=== PATIENT | female | born 1990 | race Caucasian/White ===

== ENCOUNTER 2023-04-04 07:05 | Inpatient (IN) | payer MEDICAID, SELFPAY ==
[2023-04-04] VITALS (54 sets, daily range): BP systolic 79–108; BP diastolic 45–62; PULSE 70–156; TEMP 35.9–36.7; O2SAT 83–100; BMI 31.8
--- NOTE | 2023-04-04 08:00 | HP.PCM.OB_ITS ---
HPI - General General Date of Admission: 04/04/23 HPI Narrative RUSSELL CAMPBELL, is a 32 F who presents [facility] Home Medications NK 04/04/23 [History Last Taken Unknown] Allergy/AdvReac Type Severity Reaction Status Date / Time Penicillins [PCN] Allergy Rash Verified 04/04/23 07:33 Vital Signs Vital Signs Vital Signs: 04/04/23 07:28 04/04/23 07:28 04/04/23 07:28 Temperature 97.5 F L Pulse Rate 91 Blood Pressure 93/54 L BP Systolic 93 BP Diastolic 54 Pulse Ox 04/04/23 07:29 04/04/23 07:29 Temperature Pulse Rate 89 Blood Pressure BP Systolic BP Diastolic Pulse Ox 99 Weight Weight: 203 lb 0.732 oz Body Mass Index (BMI) 31.8 Labs Labs Labs: No Data to Display
--- NOTE | 2023-04-04 08:00 | PCM.HP.OB ---
HPI - General General Date of Admission: 04/04/23 HPI Narrative RUSSELL CAMPBELL, is a 32 F at 37.2 weeks gestation who presents for induction of labor for cholestasis. Maternal Data Information XIN Calculator Estimated Delivery Date Method Current WG Current Estimate 04/23/23 Manual 37w 2d PFSH PFSH Home Medications NK 04/04/23 [History Last Taken Unknown] Allergy/AdvReac Type Severity Reaction Status Date / Time Penicillins [PCN] Allergy Rash Verified 04/04/23 07:33 Social History Smoking Status: Never smoker History Elective abortions Hx Para 5 Spontaneous abortions Hx # Term Pregnancies Ectopic pregnancies Hx # Pregnancies Multiple births # of living children ROS Eyes Eyes: Denies blurry vision, change in vision or spots in vision ENT HEENT: Denies dizziness or headache(s) Cardiovascular Cardiovascular: Denies abdominal pain, chest pain or dyspnea Respiratory/Chest Respiratory/Chest: Denies cough, dyspnea, shortness of breath at rest or shortness of breath with exertion Gastrointestinal Gastrointestinal: Denies abdominal pain, diarrhea or vomiting Genitourinary Genitourinary: Denies change in urinary stream, difficulty urinating or dysuria Musculoskeletal Musculoskeletal: Reports none Integumentary Integumentary: Denies rash Neurologic Neurologic: Denies dizziness, headache(s), memory loss or weakness Psychiatric Psychiatric: Reports none Vital Signs Vital Signs Vital Signs: 04/04/23 07:28 04/04/23 07:28 04/04/23 07:28 Temperature 97.5 F L Pulse Rate 91 Blood Pressure 93/54 L BP Systolic 93 BP Diastolic 54 Pulse Ox 04/04/23 07:29 04/04/23 07:29 Temperature Pulse Rate 89 Blood Pressure BP Systolic BP Diastolic Pulse Ox 99 Weight Weight: 203 lb 0.732 oz Body Mass Index (BMI) 31.8 Physical Exam Const alert, oriented x3 and no apparent distress General Appearance: cooperative Orientation / Consciousness: awake Exam Limitations: no limitations HEENT normocephalic Head and Scalp: normal to inspection Eyes General Eye: normal appearance of both eyes Neck full ROM and no lymphadenopathy Lymph Lymphatic: no lymphadenopathy noted Chest inspection of chest normal Resp normal respiratory effort, normal air movement and clear to auscultation bilaterally Effort and Inspection: able to speak in complete sentences and symmetric chest movement Cardio regular rate and regular rhythm GI normal to inspection, nondistended, normoactive bowel sounds Manual OB Exam: presentation cephalic Back/Spine normal ROM Extremity full ROM and no calf tenderness Skin no rashes or lesions noted General Skin Exam: no breakdown Neuro oriented x3 and CN's II-XII intact bilaterally Psych mental status grossly normal and thought process normal Labs Labs Labs: Blood Type Pending Antibody Screen Pending Hct 31.9 % (37-47) L Hgb 10.3 g/dL (12.0-15.0) L Syphilis Total Ab Pending Assessment & Plan (1) Grand multiparity in labor and delivery: (2) 37 weeks gestation of : (3) Cholestasis during : PLAN: Plan Admit to labor and delivery Routine labs Start IV and run fluids per orders GBS negative Start Pitocin at 2 mu/min and increase per policy Patient declining placement of ga bulb until s/p epidural placement CE- 2//-[address] Curiel notified of admission and is collaborating physician
[2023-04-04] MEDS: Lactated Ringers 1,000 ML 50 ML IV (08:11)
[2023-04-04] MEDS: Oxytocin 15 Units/NS 250ml 15 UNITS/250 ML IV.SOLN 2 UNITS IV (08:11)
[2023-04-04 08:28] LABS: Absolute Lymphocyte Count 1.64 X10^3/uL (0.83-4.51); Absolute Neutrophil Count 4.4 X10^3/uL (2.0-7.7); Basophil# 0.02 X10^3/uL; Basophil% 0.3 % (0-1); Eosinophil# 0.17 X10^3/uL; Eosinophils% 2.4 % (0-5); Hematocrit 31.9 % (37-47); Hemoglobin 10.3 g/dL (12.0-15.0); Lymphocyte # 1.64 X10^3/ul (0.83-4.51); Lymphocyte % 23.6 % (19-41); Mean Corp Hgb Conc 32.3 g/dL (32-36); Mean Corpuscular Hgb 27.2 pg (27.0-32.0); Mean Corpuscular Volume 84.4 fL (81-99); Mean Platelet Vol. 11.6 fl (6.2-12.0); Monocyte# 0.68 X10^3/uL; Monocyte% 9.8 % (0-10); NRBC Flagged by Analyzer 0 % (0-5); Neutrophil % 63.2 % (47-70); Platelet Count 213 K/mm3 (150-450); RBC Distribution Width CV 12.9 % (11.6-14.6); RBC Distribution Width SD 39.2 fl (35.1-43.9); Red Blood Count 3.78 M/mm3 (4.2-5.4)
[2023-04-04 09:01] LABS: Syphilis Antibodies Non-reactive
[2023-04-04] MEDS: LACTATED RINGERS 500 ML 999 ML IV ×3 (12:43→16:19)
[2023-04-04 13:54] LABS: Chlamydia Trachomatis by PCR Negative (Negative); Neisserai gonorrhoeae by PCR Negative (Negative); Probe Check PASS; Sample Adequacy Control PASS; Specimen Processing Control PASS
[2023-04-04] MEDS: fentaNYL-bupivacaine (epidural) 100 ML BAG EPIDURAL ×2 (14:09→20:03)
--- NOTE | 2023-04-04 17:24 | PCM.PN.BLA ---
Progress Note Patient seen at bedside. Comfortable with epidural. Denies any pain. Assessment & Plan Assessment/Plan (1) Grand multiparity in labor and delivery: (2) 37 weeks gestation of : (3) Cholestasis during : (4) Encounter for induction of labor: PLAN: Plan CE /-2 AROM for clear fluid IUPC placed without difficulty Pitocin at 20 mu/min Cat. 1 tracing, NST reactive Anticipate
[2023-04-04] MEDS: Lactated Ringers 1,000 ML 200 ML IV ×2 (17:39→23:14)
[2023-04-05] VITALS (41 sets, daily range): BP systolic 92–142; BP diastolic 51–97; PULSE 59–86; RESP 15–16; TEMP 36.1–37; O2SAT 89–100
[2023-04-05] MEDS: Oxytocin 15 Units/NS 250ml 15 UNITS/250 ML IV.SOLN 83 UNITS IV (02:00)
--- NOTE | 2023-04-05 02:06 | EX.PCM.OBRPT ---
Assessment & Plan (1) (spontaneous vaginal delivery): (2) Care and examination of lactating mother: (3) Anxiety: (4) depression: (5) Cholestasis during : Maternal Data Information XIN Calculator Estimated Delivery Date Method Current WG Current Estimate 04/23/23 Manual 37w 3d Vaginal Delivery Maternal Presentation Maternal Presentation: Medically Indicated Induction Type of Induction: Pitocin and Amniotomy Operative Information Date of Procedure: 04/05/23 Pre-Operative Diagnosis: Term gestation, induction of labor for cholestasis Post-Operative Diagnosis: , Live male Surgery / Procedure Performed: Spontaneous Vaginal Delivery Type of Anesthesia: Epidural Drain: Tolentino to straight drain Estimated Blood Loss: 150 Time of Delivery: 01:41 Findings Description of Procedure: Called to patient's room for being complete dilation and feeling pressure. With minimal maternal effort, head delivered with noted hand next to face, followed immediately by anterior shoulder and remainder of infant body without traction. Vigorous male placed on maternal abdomen and attended to by nursing staff. Pitocin IV started for active management of the third stage of labor. 3 vessel cord clamped and cut by FOB after delay and placed skin to skin with patient. Placenta delivered spontaenously and intact. After inspection the vagina and perineum intact. Fundus firm 2 below U. EBL 150 cc. APGARS 9/9. Patient and bonding well at this time. Presentation: Vertex Amniotic Membrane Rupture Type: Artificial Time of Membrane Rupture: 1717 Amniotic Fluid Description: Clear and Bloody Placental Delivery Description: Spontaneous Placenta Disposition: [facility] Cord Vessel Description: 3 Vessels Cord Entanglement: None A Gender: Male (1 minute): 9 (5 minute): 9 Delayed Cord Clamping: Yes Post Vaginal Delivery Medications Given After Delivery: IV Pitocin Episiotomy Description: None Laceration: None Complication Complications: None
--- NOTE | 2023-04-05 09:20 | NURSING ---
pt in room lying flat in bed. pt c/o chest tightness. denies SOB and is able to take deep breaths. VS WNL. will call office and make them aware of pt complaints.
--- NOTE | 2023-04-05 11:47 | NURSING ---
pt states that chest tightness has gone away. pt requesting for this nurse to do VS now so she can take a nap.
[2023-04-05] MEDS: Acetaminophen 500 MG Tablet 1000 MG PO (15:06)
[2023-04-05] MEDS: Senna/Docusate Sodium 1 Tablet PO (15:07)
[2023-04-06 00:36] VITALS: BP 101/48; PULSE 69; RESP 14; TEMP 37; O2SAT 98
[2023-04-06 02:46] VITALS: BP 112/67; PULSE 68; RESP 17; TEMP 36.6; O2SAT 99
[2023-04-06] MEDS: Senna/Docusate Sodium 1 Tablet PO (02:48)
[2023-04-06] MEDS: Acetaminophen 500 MG Tablet 1000 MG PO ×2 (02:48→09:20)
[2023-04-06] MEDS: Naproxen 500 MG Tablet PO (05:51)
--- NOTE | 2023-04-06 08:09 | PCM.PN.OB ---
Subjective Subjective Doing well per patient and nursing staff. Ambulating and taking PO without difficulty. Voiding and passing flatus. Pain controlled. , services for assistance. Denies headache, visual changes, chest pain, shortness of breath, leg pain or increased bleeding. Lochia normal. Objective Data Objective Data Vital Signs: Vital Signs Temp Pulse Resp BP Pulse Ox O2 Del Method 97.8 F 68 17 112/67 99 Room Air 04/06/23 02:46 04/06/23 02:46 04/06/23 02:46 04/06/23 02:46 04/06/23 02:46 04/06/23 02:46 Oxygen Delivery Method Room Air Weight: 203 lb 0.732 oz Body Mass Index (BMI) 31.8 Intake & Output: Intake and Output for Last 24 Hours 04/04/23 04/05/23 04/06/23 23:59 23:59 23:59 Intake Total 4054.66 / 4054.66 839.07 / 839.07 Output Total 2350 / 2350 550 / 550 Balance 1704.66 / 1704.66 289.07 / 289.07 Lab / Micro Data Result Diagrams: 04/04/23 07:55 ROS Constitutional Constitutional: Reports systems reviewed and no addt'l complaints, except as documented; Denies headache(s) Eyes Eyes: Denies acute decrease in peripheral vision, blurry vision or change in vision ENT HEENT: Reports systems reviewed and no addt'l complaints, except as documented Cardiovascular Cardiovascular: Denies chest pain or dizziness Respiratory/Chest Respiratory/Chest: Denies cough, dyspnea, dyspnea on exertion, shortness of breath at rest or shortness of breath with exertion Gastrointestinal Gastrointestinal: Denies abdominal pain, diarrhea, nausea or vomiting Genitourinary Genitourinary: Denies abdominal discomfort Musculoskeletal Musculoskeletal: Denies limited range of motion Integumentary Integumentary: Reports systems reviewed and no addt'l complaints, except as documented Neurologic Neurologic: Reports systems reviewed and no addt'l complaints, except as documented Psychiatric Psychiatric: Reports systems reviewed and no addt'l complaints, except as documented Endocrine Endocrinology: Reports systems reviewed and no addt'l complaints, except as documented Hematologic/Lymphatic Hematologic/Lymphatic: Reports systems reviewed and no addt'l complaints, except as documented Allergic/Immunologic Allergic/Immunologic: Reports systems reviewed and no addt'l complaints, except as documented Physical Exam Const alert and oriented x3 General Appearance: cooperative Orientation / Consciousness: awake, oriented to person, oriented to place and oriented to time Exam Limitations: no limitations HEENT normocephalic Head and Scalp: normal to inspection, normocephalic and atraumatic Face and Sinus: normal facial exam Eyes General Eye: normal appearance of both eyes Neck full ROM Chest Chest: symmetrical chest wall rise Resp normal respiratory effort and normal air movement Auscultation: clear to auscultation bilaterally Cardio regular rate, regular rhythm, S1 normal heart sound, S2 normal heart sound, no murmurs, no rub, no gallops and no clicks GI normal to inspection, nondistended, normoactive bowel sounds and non-tender appearance of the vagina normal Bladder / Kidney Exam: no CVA tenderness Back/Spine normal ROM Extremity normal to inspection and full ROM Skin no rashes or lesions noted Neuro oriented x3, CN's II-XII intact bilaterally and moves all extremities Sensorium / Orientation: awake, alert and oriented to person Motor Exam: clonus absent Deep Tendon Reflexes: Rt Patellar (L4): 2+ and Lt Patellar (L4): 2+ Assessment & Plan (1) depression: (2) Anxiety: (3) Care and examination of lactating mother: (4) (spontaneous vaginal delivery): PLAN: Plan 1) PPD#1 2) Vitals stable 3) Pain controlled 4) Follow up in 2 weeks and 6 weeks PP 5) D/C home
--- NOTE | 2023-04-06 08:10 | PCM.DC.SUM ---
Providers Date of Admission: 04/04/23 Primary Care Physician: Christina Primary Care Phys Reason For Visit: VAGINAL DELIVERY Diagnosis Discharge Diagnosis (1) depression: Status: Acute Code(s): F53.0 - depression (2) Anxiety: Status: Acute Code(s): F41.9 - Anxiety disorder, unspecified (3) Care and examination of lactating mother: Status: Acute Code(s): Z39.1 - Encounter for care and examination of lactating mother (4) (spontaneous vaginal delivery): Status: Acute Code(s): O80 - Encounter for full-term uncomplicated delivery Plan 1) PPD#1 2) Vitals stable 3) Pain controlled 4) Follow up in 2 weeks and 6 weeks PP 5) D/C home Medications at Discharge Home Medications acetaminophen 500 mg tablet 1,000 mg PO Q6H PRN PRN Pain 1-10 Or Fever #0 tabs 04/06/23 naproxen 500 mg tablet 500 mg PO Q8H PRN PRN Pain Score 1-3 #0 tabs 04/06/23 Weight / BMI Weight Weight: 203 lb 0.732 oz Body Mass Index (BMI) 31.8 ABG / Lab / Microbiology Data Result Diagrams: 04/04/23 07:55 Meaningful Use Info Meaningful Use Diagnoses (Choose all that apply): None applicable Discharge Plan Admission Admit Date/Time: 04/04/23 07:05 Primary Reason for Your Visit: Vaginal Delivery Attending Provider: Jennifer Wright Primary Care Provider: Viky Physician,Christina Primary Discharge Orders/Prescriptions Prescriptions: New acetaminophen 500 mg Tablet 1,000 mg PO Q6H PRN PRN (Reason: Pain 1-10 Or Fever) Qty: 0 0RF naproxen 500 mg Tablet 500 mg PO Q8H PRN PRN (Reason: Pain Score 1-3) Qty: 0 0RF Referrals / Follow Up: Care Physician,No Primary [Primary Care Provider] - Disposition Disposition (needs filled in before D/C Order can be placed): Home, Self Care
--- NOTE | 2023-04-07 16:00 | CASEMGMT ---
Social Work Assessment Labor and Delivery Unit ? REFERRAL ? Date of Referral:?04.05.2023 Time of Referral:?718 Date of Intervention:?04.07.2023 Time of Intervention:?[id number] ? Referral source: Jennifer Wright CNM ?? Reason for Referral:?Maternal anxiety, depression, history of PPD, SCN admission.?? ? HISTORY: History obtained from:??Mother of baby (MOB), medical records. ?Educated that this flex o writer operator is the social research assistant for [facility], and for continuity of care of families admitted to the special care nursery, also provide social work services to special care. ? Family Data Patient/mother of Baby (MOB):??Falguni Kim, age 30 ? Father of Baby (FOB):??Codie Reese Julio, 1992 ? Parents' relationship status:?? ? Household composition:??MOB, FOB, and 's 5 older siblings: ? Jessica Swenson, 4..2007 Hudson Swenson, 12..2010 Shen Diego, 12..2015 Aleyda Diego, 9..2012 Rolly Julio, 12.20.2021 Infant/patient, Roberto Sanchezbarbara, 04.05.2021 ? Name of Child's Legal Guardian:?MOB and FOB Will reside with child??yes ? Names of Significant Others/Childcare/Caregivers not living in the home:?MOB and FOB are primary caregivers.?? ? Other support systems:??MOB's grandmother and the family's sikh.?? ? Housing:??Reported as safe and adequate. ?Live in home. ? Care:?[facility]ia [facility], starting at 13 weeks.? Medical History: ? Baby:??Infant delivered at 37.2 weeks gestation. ?3450 g at . ?Apgars 9 and 9 at 1 and 5 minutes of life respectively. ? transferred into the special care nursery after due to respiratory distress issues. Mother:??MOB is 7, para 5 now 6 after delivering infant Roberto. ?Medical record indicates MOB was induced for cholestasis. ? ? Health Care Coverage:?[place] community health plan ? Financial Status/Employment:?MELCHOR was working a cleaning business, but plans to take a step back from this and be a [id number] mother. ?MOB reports the FOVaibhav recently got up stipend through the [employer] which is allowing the MOB opportunity to stay home. ?STANISLAV also works outside of the home. ? Educational Status: ?MOB:??MOB has some college. ?No reported literacy issues. ???FOB: ?FOVaibhav's educational status not discussed. ? Baby Supplies:??MOB reports to have all necessary supplies to care for the infant including safe sleep space of pack and play with bassinet attachment. ?Car seat in place. ?No concerns with clothing, diapers or wipes. ? Transportation Needs:??MOB denies any concerns. ? Community Agencies Involved:??[employer] for food card and medical. ?Active with WIC. ?Verbally agrees to a nurse visit through the [facility]. ? Mental Health History:?MOB reports history of depression, anxiety, ADHD and depression. ?MOB reports history of counseling and that this has been helpful. ?Denies any history of suicidal ideations. ?Family history of MELCHOR's grandmother with depression.?? Post Depression/Mental Health Resources Provided??Resources provided. Mother expresses understanding of post depression education??Yes. ? History of Violence:?MOB denies any history of violence or safety concerns in current relationship. ? Substance Use History:?MOB denies any substance use history including alcohol or illicit drugs. ? care record indicates MELCHOR's mother with a history of alcohol use issues. Toxicology Screens Conducted During :??No toxicology screens noted during . Toxicology Screens Conducted at Delivery:??No drug screens noted at delivery. ? Legal/CSB History:?No reported legal concerns or children services history. ? Other Potential Program Eligibility:?WIC:?Active ?SSI:?not identified ?CMH:??not identified.?HMG/EI:?Will have a nurse visit referral through the [facility].?Financial Resources:??Active with [employer] for food and medical.?? ? Family Stressors:?Infant in SCN.?? ? Impression: Met with MOB in room, introducing to self and social work role. ?MOB pleasant, cooperative, and open discussion with social research assistant. ?MOB admits it has been difficult having the in the special care nursery but had a [id number] with the electric motor winders assembler today and this was helpful. ?MOB reports willingness to stay in the hospital and work with the recommendation of the electric motor winders assembler. ?MOB denies any concerns with home-going, reporting to have all necessary supplies to care for the infant and did not have support from the FOB and left group at sikh. ?MOB's grandmother is also and an identified support. ?MOB is aware of depression as has experienced this in the past, reports willingness to seek out care and support should symptoms arise and/or become distressing. ?MOB willing to accept a referral to a nurse visit program in her area as well as information on depression. ?MOB denies any concerns with home-going. ? Plan: MOB has been discharged as a patient. Information provided on mood and anxiety disorders. Referral to the [facility] nurse visit program being completed. SW to follow as needed during special care nursery admission to provide support, education and resources. No other services requested or indicated at this time. KATHIA King 04/07/2023
== END 2023-04-06 09:30 | disposition home or self-care (01) | DRG 560 ==
PROVIDERS: Advanced Practice Midwife; Admitting Provider Advanced Practice Midwife; Visit Provider Advanced Practice Midwife
DX: O99.344 Other mental disorders complicating childbirth (principal); Z37.0 Single live birth; F41.9 Anxiety disorder, unspecified; Z3A.37 37 weeks gestation of pregnancy
CPT/HCPCS: 59025; 59050; 85025; 86780; 86850; 86900; 86901; 87491; 87591; 99221; J7120; G0378

== ENCOUNTER 2024-10-03 15:38 | Emergency (ER) | payer MEDICAID, SELFPAY ==
[2024-10-03 15:39] VITALS: BP 93/80; PULSE 91; RESP 18; TEMP 36.4; O2SAT 15; BMI 33.8
[2024-10-03 17:15] LABS: Absolute Lymphocyte Count 1.96 X10^3/uL (0.83-4.51); Absolute Neutrophil Count 4.1 X10^3/uL (2.0-7.7); Basophil# 0.03 X10^3/uL; Basophil% 0.4 % (0-1); Eosinophil# 0.17 X10^3/uL; Eosinophils% 2.5 % (0-5); Hematocrit 36.9 % (37-47); Hemoglobin 12.4 g/dL (12.0-15.0); Lymphocyte # 1.96 X10^3/ul (0.83-4.51); Lymphocyte % 29.2 % (19-41); Mean Corp Hgb Conc 33.6 g/dL (32-36); Mean Corpuscular Hgb 29.3 pg (27.0-32.0); Mean Corpuscular Volume 87.2 fL (81-99); Mean Platelet Vol. 10.8 fl (6.2-12.0); Monocyte# 0.42 X10^3/uL; Monocyte% 6.3 % (0-10); NRBC Flagged by Analyzer 0 % (0-5); Neutrophil % 61.2 % (47-70); Platelet Count 239 K/mm3 (150-450); RBC Distribution Width CV 13.2 % (11.6-14.6); RBC Distribution Width SD 41.4 fl (35.1-43.9); Red Blood Count 4.23 M/mm3 (4.2-5.4); White Blood Count 6.7 K/mm3 (4.4-11.0)
--- NOTE | 2024-10-03 17:21 | US_ITS ---
EXAM: US ABDOMEN LIMITED, RIGHT UPPER QUADRANT CLINICAL INDICATION: abdominal pain TECHNIQUE: Real-time ultrasound of the right upper quadrant with image documentation. COMPARISON: No relevant prior studies available. FINDINGS: LIVER: Unremarkable. 17.1 cm in length. Patent visualized hepatic and portal veins. Normal direction of portal vein flow. There is normal echotexture. No focal hepatic lesion. No intrahepatic biliary ductal dilation. GALLBLADDER: Unremarkable. No shadowing gallstone. No gallbladder wall thickening is demonstrated. No pericholecystic fluid. Negative sonographic Lares''s sign. COMMON BILE DUCT: Unremarkable as visualized 3 mm near the curtis.. The proximal common bile duct is within normal limits for the patient''s age. PANCREAS: Much of the pancreas is obscured by bowel gas. No focal abnormality is demonstrated in the pancreas. No pancreatic ductal dilatation. RIGHT KIDNEY: Unremarkable. 11.7 cm x 4.9 cm x 3.7 cm There is no hydronephrosis. No shadowing calculus. No focal lesion or perinephric collection is demonstrated. US/Gallbladder IMPRESSION: Unremarkable right upper quadrant ultrasound. Limited visualization of pancreas. Electronically Signed: Merlene Dillon MD at 18:42 EST ,
--- NOTE | 2024-10-03 17:21 | EX.ED.DYSGE1 ---
HPI History of Present Illness Chief Complaint: Abd Pain Detail of Chief Complaint: Abdominal pain Informant: patient Narrative Narrative: Patient presents to the emergency room with complaint of abdominal pain that started around 10 AM this morning. Patient states the pain lasted about 2 hours continuously and it was crampy and squeezing-like. She had not eaten yet today. She had similar pain with the current x 3. Last time she had this pain was the day before . Patient states that she had similar pain with her prior . She has history of cholestasis. No prior abdominal surgeries. She is 19 weeks . Patient is G8, P6. She denies vaginal bleeding. She is feeling the baby move. She denies urinary symptoms. [facility] Medical History (Updated 10/03/24 @ 19:[address] Chon Payne DO) HPV (human papilloma virus) infection macrosomia Psychiatric disorder depression Depression Anxiety Home Medications ?Medication ?Instructions ?Recorded ?Last Taken ?Type acetaminophen 500 mg tablet 1,000 mg (2 x 500 mg) PO Q6H PRN 04/06/23 Unknown Rx PRN Pain 1-10 Or Fever #0 tabs naproxen 500 mg tablet 500 mg PO Q8H PRN PRN Pain Score 04/06/23 Unknown Rx 1-3 #0 tabs Allergy/AdvReac Type Severity Reaction Status Date / Time Penicillins (PCN) Allergy Rash Verified 10/03/24 15:39 Social History Smoking Status: Never smoker ROS ROS ED Review of Systems ROS Unobtainable: other Constitutional Constitutional ED: Reports lethargy; Denies chills, fever(s), sweats or weight loss Eyes Eyes: Denies blurry vision, change in vision or diplopia ENT ENT ED: Denies rhinorrhea or sore throat Cardiovascular Cardiovascular: Denies chest pain, orthopnea or racing heartbeat Respiratory/Chest Respiratory/Chest: Denies cough, dyspnea, dyspnea on exertion, orthopnea or sputum Gastrointestinal Gastrointestinal: Reports abdominal pain; Denies diarrhea, nausea or vomiting Genitourinary Genitourinary ED: Denies dysuria, hematuria or urinary frequency Musculoskeletal Musculoskeletal: Denies arthralgias, back pain, myalgias or neck pain Integumentary Denies abscess, Abrasions or rash Neurologic Neurologic: Denies headache(s) or weakness Psychiatric Psychiatric: Denies anxiety, depression or suicidal thoughts Endocrine Endocrinology: Denies polydipsia, polyphagia or polyuria Hematologic/Lymphatic Hematologic/Lymphatic: Denies easy bleeding, easy bruising or lymphadenopathy Allergic/Immunologic Allergic/Immunologic ED: Denies mouth swelling, tongue swelling or urticaria EXAM Physical Exam Const Vital Signs: 10/03/24 15:39 Temperature 97.5 F L Temperature Source Temporal Pulse Rate 91 Respiratory Rate 18 Blood Pressure 93/80 Blood Pressure Mean 84 Pulse Ox 15 Oxygen Delivery Method Room Air Positive well nourished and well developed General Appearance ED: well developed and NAD HEENT Reports TM's clear and moist mucous membranes normocephalic and atraumatic; Negative for trauma or tenderness Tympanic Membrane ED: Yes TM's clear Eyes PERRL and EOMs intact bilaterally General Eye ED: Negative for pale conjunctiva or scleral icterus Neck no lymphadenopathy, supple and no JVD General: Negative for tenderness Chest Wall inspection of chest normal and palpation of chest normal Chest: Negative for tenderness Resp normal respiratory effort and clear to auscultation bilaterally Effort and Inspection: Negative for respiratory distress or pain with movement Auscultation: Negative for rhonchi, wheezes or diminished lung sounds Cardio regular rate, regular rhythm, S1 normal heart sound, S2 normal heart sound and no murmurs Peripheral Pulses: pulses 2+ throughout GI normal to inspection, nondistended, normoactive bowel sounds, soft to palpation, non-tender, non-distended and no masses Back/Spine no CVA tenderness and no thoracic nor lumbar tenderness Extremity normal to inspection General Extremety ED: Negative for edema General Extremity: Negative for edema Neuro oriented x3, CN's II-XII intact bilaterally, no sensory deficits noted and gait normal Sensorium / Orientation: awake, alert, oriented to person, oriented to place and oriented to time Motor Exam: strength 5/5 throughout and strength abnormal Psych mental status grossly normal Skin no rashes or lesions noted and no wounds MDM MDM MDM Narrative Medical decision making narrative: The patient presents to the emergency department with abdominal pain that she had for about 2 hours earlier today in the right upper quadrant. She has history of cholestasis related to . She is currently pain-free. She has had similar pains in the past with prior pregnancies. IV line established. CBC with differential obtained showed a normal white count of 6.7 with hemoglobin of 12.4 and platelet count of 239. Chemistries and LFTs were normal. Urinalysis was normal. Gallbladder ultrasound performed was essentially normal. Plan will be to obtain heart tones and discharged to home. Clinically she looks well. I do not feel any further treatments indicated. Advised to follow-up with her SCIENTIFIC SYSTEMS ANALYST within next 3 to 5 days. She is to return if worsening pain, fever, vomiting, or condition should worsen in any way. Lab Data Attestation: I reviewed the patient's lab results. Labs: Laboratory Results - last 24 hr 10/03/24 17:05 WBC 6.7 RBC 4.23 Hgb 12.4 Hct 36.9 L MCV 87.2 MCH 29.3 MCHC 33.6 RDW Std Deviation 41.4 RDW Coeff of Jaya 13.2 Plt Count 239 MPV 10.8 Immature Gran % (Auto) 0.400 Neut % (Auto) 61.2 Lymph % (Auto) 29.2 [place] % (Auto) 6.3 Eos % (Auto) 2.5 Baso % (Auto) 0.4 Absolute Neuts (auto) 4.1 Absolute Lymphs (auto) 1.96 Nucleated RBC % 0 Discharge Plan Triage Chief Complaint: Abd Pain ED Provider: Chon Payne Dx/Rx/DC Orders Clinical Impression: Abdominal pain, Instructions: ED Abdominal Pain Unkn Cause Fem, ED Prescriptions: No Action acetaminophen 500 mg Tablet 1,000 mg PO Q6H PRN PRN (Reason: Pain 1-10 Or Fever) Qty: 0 0RF naproxen 500 mg Tablet 500 mg PO Q8H PRN PRN (Reason: Pain Score 1-3) Qty: 0 0RF Primary Care Provider: Sandrita Mo Referrals: Care Physician,No Primary [Non-Staff] - Activity Restrictions/Additional Instructions: Follow-up with your SCIENTIFIC SYSTEMS ANALYST within the next 3 to 5 days. Print Language: Wolof Disposition Disposition: Home, Self Care
[2024-10-03 17:34] LABS: Internal QC Validated? YES +Cl - CLEAR BKGD
[2024-10-03 17:35] LABS: ALB/GLOB Ratio 0.8 RATIO (0.9-2.4); AST(SGOT) 11 U/L (15-37); Alanine Aminotransfer ALT/SGPT 17 U/L (13-56); Albumin, Serum 3.2 g/dL (3.2-5.0); Alkaline Phosphatase 81 U/L (45-117); Anion Gap 6 (5-15); BUN 8 mg/dL (7-18); BUN/Creat Ratio 15.2 RATIO (10-20); Chloride 108 mmol/L (98-107); Creatinine, Serum 0.53 mg/dL (0.55-1.02); EST Glomerular Filtration Rate 142 mL/min (>60); Est Glom Filt Rate - Afr Amer 172 mL/min (>60); Estimated Creatinine Clearance 183.19 ml/min; Globulin 4.1 g/dL (2.2-4.2); Glucose 94 mg/dL (74-106); Potassium 3.7 mmol/L (3.5-5.1); Protein, Total 7.3 g/dL (6.4-8.2); Sodium Level 139 mmol/L (136-145)
[2024-10-03 17:37] LABS: Pregnancy, Serum, hCG Quali. POSITIVE Negative
[2024-10-03 17:38] VITALS: BP 103/78
[2024-10-03 18:50] LABS: Mucous, Urine 0 SEEN /hpf (<or=2+); Red Blood Cells-Urine 0 SEEN /hpf (0-5)
[2024-10-03 18:55] LABS: Color, Urine Yellow (Yellow); Glucose, Dipstick Normal (Normal); Ketone-Dipstick Negative (Negative); Leukocyte Esterase-Dipstick 25 /ul (Negative); Nitrite-Dipstick Negative (Negative); Occult Blood-Urine Negative /ul (Negative); Protein-Dipstick 15 mg/dl (Negative); Specific Gravity, Urine 1.025 (1.002-1.030); Urine Bilirubin Dipstick Negative (Negative); Urine Clarity Clear (Clear); Urine Urobilinogen 1 mg/dl (Normal)
[2024-10-03 19:01] LABS: Bacteria 1+ /hpf (None Seen); Squamous Epithelial Cells - UA 5-10 SEEN /hpf (5-10); White Blood Cells 0-5 SEEN /hpf (0-5)
== END 2024-10-03 19:19 | disposition home or self-care (01) ==
PROVIDERS: Emergency Provider Emergency Medicine; Visit Provider Emergency Medicine
DX: O99.891 Other specified diseases and conditions complicating pregnancy (principal); Z3A.19 19 weeks gestation of pregnancy; R10.11 Right upper quadrant pain
CPT/HCPCS: 76705; 80053; 81001; 84703; 85025; 99283; A4216

== ENCOUNTER 2025-02-07 07:55 | Outpatient (CLI) | payer MEDICAID, SELFPAY ==
[2025-02-07 07:51] VITALS: BMI 32.8
[2025-02-07 08:06] VITALS: BP 106/55; PULSE 81
[2025-02-07 08:07] VITALS: RESP 15; TEMP 36.6; O2SAT 99
--- NOTE | 2025-02-14 13:28 | OB.TRI.HP_ITS ---
HPI - General General Date of Service: 02/14/25 HPI Narrative RUSSELL CAMPBELL, is a 34 F who presents fo induction. PFSH PFSH Medical History Cholestasis during Thyroid disorder HPV (human papilloma virus) infection macrosomia Psychiatric disorder depression Depression Anxiety Home Medications ?Medication ?Instructions ?Recorded ?Last Taken ?Type acetaminophen 500 mg tablet 1,000 mg (2 x 500 mg) PO Q 6H PRN 04/06/23 Unknown Rx PRN Pain 1-10 Or Fever #0 tabs Allergy/AdvReac Type Severity Reaction Status Date / Time Penicillins (PCN) Allergy Rash Verified 02/08/25 08:14 Social History Smoking Status: Never smoker History 8 Elective abortions Hx Para 6 Spontaneous abortions Hx # Term Pregnancies Ectopic pregnancies Hx # Pregnancies Multiple births # of living children Assessment & Plan (1) Cholestasis during : QUALIFIERS: Trimester: third trimester Qualified Code(s): O26.643 - Intrahepatic cholestasis of , third trimester PLAN: Plan Patient sent home as unable to start induction. NST reactive.
== END 2025-02-07 09:05 | disposition home or self-care (01) ==
LOC: WPOUT 14:08 → WP 14:08
PROVIDERS: Visit Provider Obstetrics & Gynecology
DX: O26.643 Intrahepatic cholestasis of pregnancy, third trimester (principal); Z3A.00 Weeks of gestation of pregnancy not specified
CPT/HCPCS: 59025; 59050

== ENCOUNTER 2025-02-08 07:19 | Inpatient (IN) | payer MEDICAID, SELFPAY ==
[2025-02-08] VITALS (38 sets, daily range): BP systolic 85–113; BP diastolic 48–77; PULSE 58–100; RESP 14–16; TEMP 36.4–37.1; O2SAT 94–100; BMI 32.8
[2025-02-08] MEDS: Lactated Ringers 1,000 ML 50 ML IV (08:00)
[2025-02-08] MEDS: Oxytocin 15 Units/NS 250ml 15 UNITS/250 ML IV.SOLN 2 UNITS IV (08:09)
[2025-02-08 08:15] LABS: Absolute Lymphocyte Count 2.24 X10^3/uL (0.83-4.51); Absolute Neutrophil Count 4.5 X10^3/uL (2.0-7.7); Basophil# 0.03 X10^3/uL; Basophil% 0.4 % (0-1); Eosinophil# 0.15 X10^3/uL; Hematocrit 33.4 % (37-47); Hemoglobin 11.4 g/dL (12.0-15.0); Lymphocyte # 2.24 X10^3/ul (0.83-4.51); Lymphocyte % 30.1 % (19-41); Mean Corp Hgb Conc 34.1 g/dL (32-36); Mean Corpuscular Hgb 29.6 pg (27.0-32.0); Mean Corpuscular Volume 86.8 fL (81-99); Mean Platelet Vol. 11.5 fl (6.2-12.0); Monocyte# 0.53 X10^3/uL; Monocyte% 7.1 % (0-10); NRBC Flagged by Analyzer 0 % (0-5); Neutrophil # 4.45 X10^3/uL (2.7-7.7); Neutrophil % 59.9 % (47-70); Platelet Count 214 K/mm3 (150-450); RBC Distribution Width CV 12.4 % (11.6-14.6); RBC Distribution Width SD 39.2 fl (35.1-43.9); Red Blood Count 3.85 M/mm3 (4.2-5.4); White Blood Count 7.4 K/mm3 (4.4-11.0)
--- NOTE | 2025-02-08 08:45 | HP.PCM.OB_ITS ---
HPI - General General Date of Admission: 02/08/25 Date of Service: 02/08/25 Chief Complaint: Cholestasis HPI Narrative RUSSELL CAMPBELL, is a 34 F who presents at 37 weeks with cholestasis of Maternal Data Information Final XIN: 02/28/25 Gestational age: 37.1 PFSH PFSH Medical History Cholestasis during Thyroid disorder HPV (human papilloma virus) infection macrosomia Psychiatric disorder depression Depression Anxiety Home Medications ?Medication ?Instructions ?Recorded ?Last Taken ?Type acetaminophen 500 mg tablet 1,000 mg (2 x 500 mg) PO Q 6H PRN 04/06/23 Unknown Rx PRN Pain 1-10 Or Fever #0 tabs Allergy/AdvReac Type Severity Reaction Status Date / Time Penicillins (PCN) Allergy Rash Verified 02/08/25 08:14 Social History Smoking Status: Never smoker History 8 Elective abortions Hx Para 6 Spontaneous abortions Hx # Term Pregnancies Ectopic pregnancies Hx # Pregnancies Multiple births # of living children NST FHR Rate Baby A Baseline: 150 Variability:: Moderate Accelerations:: 15 x 15 Decelerations:: None NST Reactive:: Yes Vital Signs Vital Signs Vital Signs: 02/08/25 07:39 02/08/25 07:39 02/08/25 07:39 Temperature Temperature Source Temporal Pulse Rate 100 Respiratory Rate Blood Pressure 107/59 L BP Systolic 107 BP Diastolic 59 02/08/25 07:39 02/08/25 07:39 Temperature 98.1 F Temperature Source Pulse Rate Respiratory Rate 16 Blood Pressure BP Systolic BP Diastolic Weight Weight: 95.254 kg Body Mass Index (BMI) 32.8 Physical Exam Const alert and no apparent distress General Appearance: cooperative HEENT normocephalic Resp normal respiratory effort Cardio regular rate GI soft to palpation GI Narrative: gravid, nontender, appropriate for gestational age Extremity no calf tenderness General Extremity: edema Skin no wounds Rashes: No rashes noted Psych activity/motor behavior normal Labs Labs Labs: Blood Type A POSITIVE Antibody Screen NEGATIVE Hct 33.4 % (37-47) L Hgb 11.4 g/dL (12.0-15.0) L Syphilis Total Ab Nonreactive (Nonreactive) Assessment & Plan (1) Cholestasis during : (2) 37 weeks gestation of : (3) Grand multiparity in labor and delivery: (4) Encounter for induction of labor: PLAN: Plan Pitocin IOL
[2025-02-08 09:14] LABS: Syphilis Antibodies Nonreactive (Nonreactive)
[2025-02-08] MEDS: Lactated Ringers 1,000 ML 999 ML IV ×2 (13:35→17:31)
[2025-02-08] MEDS: fentaNYL-bupivacaine (epidural) 100 ML BAG EPIDURAL ×2 (13:36→18:23)
--- NOTE | 2025-02-08 17:56 | PCM.PN.OB ---
Subjective Subjective AROM for clear fluid. 4/70/-2 IUPC placed without difficulty Objective Data Objective Data Vital Signs: Vital Signs Temp Pulse Resp BP Pulse Ox 98.1 F 63 16 94/51 L 100 02/08/25 16:17 02/08/25 17:51 02/08/25 16:17 02/08/25 17:51 02/08/25 14:08 Weight: 95.254 kg Body Mass Index (BMI) 32.8 Intake & Output: Intake and Output for Last 24 Hours 02/06/25 02/07/25 02/08/25 23:59 23:59 23:59 Intake Total 2065.16 / 2065.16 Balance 2065.16 / 2065. Lab / Micro Data 02/08/25 08:00 Labs: Laboratory Results - last 24 hr 02/08/25 08:00: WBC 7.4, RBC 3.85 L, Hgb 11.4 L, Hct 33.4 L, MCV 86.8, MCH 29.6, MCHC 34.1, RDW Std Deviation 39.2, RDW Coeff of Jaya 12.4, Plt Count 214, MPV 11.5, Immature Gran % (Auto) 0.500, Neut % (Auto) 59.9, Lymph % (Auto) 30.1, [place] % (Auto) 7.1, Eos % (Auto) 2.0, Baso % (Auto) 0.4, Absolute Neuts (auto) 4.5, Absolute Lymphs (auto) 2.24, Nucleated RBC % 0, Syphilis Total Ab Nonreactive, Blood Type A POSITIVE, Antibody Screen NEGATIVE NST FHR Rate Baby A Baseline: 135 Variability:: Moderate Accelerations:: 15 x 15 Decelerations:: None FHR Category:: Category I Uterine Activity:: q 2 Assessment & Plan (1) Encounter for induction of labor: (2) Cholestasis during : (3) 37 weeks gestation of : (4) Grand multiparity in labor and delivery: PLAN: Plan Continue current management
[2025-02-08] MEDS: LACTATED RINGERS 500 ML 999 ML IV (19:35)
[2025-02-08] MEDS: Calcium Carbonate 500 MG Tablet 1000 MG PO (20:06)
[2025-02-08] MEDS: Lactated Ringers 1,000 ML 200 ML IV (21:16)
--- NOTE | 2025-02-08 22:33 | EX.PCM.OBVAG ---
Assessment & Plan (1) (spontaneous vaginal delivery): (2) Cholestasis during : QUALIFIERS: Trimester: third trimester Qualified Code(s): O26.643 - Intrahepatic cholestasis of , third trimester Maternal Data Information Final XIN: 03/01/25 Gestational age: 37.1 Vaginal Delivery Maternal Presentation Maternal Presentation: Medically Indicated Induction Maternal Presentation: Cholestasis of Type of Induction: Pitocin Vaginal Delivery Information Procedure Performed: Spontaneous Vaginal Delivery Surgeon/Practitioner: Taylor Carvajal Date of Procedure: 02/08/25 Pre-Procedure Diagnosis: Cholestasis of Post-Procedure Diagnosis: Type of anesthesia: Epidural Estimated Blood Loss: 50 cc Time of Delivery: 22:24 Findings Description of procedure: IOL for cholestasis of . Declined Tolentino bulb. Pitocin and AROM. Reached 20 MUs of Pitocin and was found to be 4 cm. Progressed to complete after a Pitocin break. Pushed through 2 contractions to deliver OA. The anterior and posterior shoulders delivered easily. The cried upon delivery and was placed on the maternal abdomen. The cord was clamped and cut. The placenta delivered with gentle traction there were no lacerations. All sponge and instruments counts were correct. Presentation: Vertex and BRET Amniotic Membrane Rupture Type: Artificial Amniotic Fluid Description: Clear Placental Delivery Description: Spontaneous Placenta Disposition: [facility] Specimen collected: No Cord Vessel Description: 3 Vessels Cord Entanglement: None Infant A Gender: Female (1 minute): 8 (5 minute): 9 Delayed Cord Clamping: Yes Composition Board Press Operator inspector weights and measures: No Post Vaginal Deli Medications given after delivery: IV Pitocin Episiotomy Description: None Laceration: None Complication Complications: No
[2025-02-08] MEDS: Oxytocin 15 Units/NS 250ml 15 UNITS/250 ML IV.SOLN 83 UNITS IV (22:41)
[2025-02-09] VITALS (8 sets, daily range): BP systolic 97–117; BP diastolic 55–65; PULSE 64–79; RESP 14–74; TEMP 36.4–36.9; O2SAT 99–100
[2025-02-09] MEDS: Acetaminophen 500 MG Tablet 1000 MG PO ×3 (06:50→22:11)
[2025-02-09] MEDS: Ibuprofen 600 MG Tablet PO ×3 (08:49→23:28)
--- NOTE | 2025-02-09 09:05 | PCM.PN.OB ---
Subjective Subjective Doing well. Ambulating and voiding without difficulty. Mild lochia. Breast feeding. Objective Data Objective Data Vital Signs: Vital Signs Temp Pulse Resp BP Pulse Ox O2 Del Method 97.8 F 72 16 108/63 100 Room Air 02/09/25 03:30 02/09/25 03:30 02/09/25 03:30 02/09/25 03:30 02/08/25 17:58 02/09/25 03:30 Oxygen Delivery Method Room Air Weight: 95.254 kg Body Mass Index (BMI) 32.8 Intake & Output: Intake and Output for Last 24 Hours 02/07/25 02/08/25 02/09/25 23:59 23:59 23:59 Intake Total 3953.10 / 3953.10 250 / 250 Output Total 1250 / 1250 700 / 700 Balance 2703.10 / 2703.10 -450 / -450 Lab / Micro Data 02/08/25 08:00 Labs: Laboratory Results - last 24 hr 02/08/25 08:00: Syphilis Total Ab Nonreactive, Blood Type A POSITIVE, Antibody Screen NEGATIVE ROS Constitutional Constitutional: Denies headache(s) Cardiovascular Cardiovascular: Denies chest pain or dyspnea Gastrointestinal Gastrointestinal: Denies nausea or vomiting Genitourinary Genitourinary: Denies dysuria Physical Exam Const alert, oriented x3 and no apparent distress General Appearance: cooperative and comfortable Eyes PERRL and EOMs intact bilaterally Resp normal respiratory effort GI soft to palpation and non-tender Uterus Palpation: uterus fundus firm ( below umbilicus) Extremity normal to inspection and full ROM Neuro oriented x3 and CN's II-XII intact bilaterally Psych mental status grossly normal Assessment & Plan (1) (spontaneous vaginal delivery): (2) Cholestasis during : QUALIFIERS: Trimester: third trimester Qualified Code(s): O26.643 - Intrahepatic cholestasis of , third trimester PLAN: Plan Routine care
--- NOTE | 2025-02-09 16:05 | CASEMGMT ---
Social Work Assessment Labor and Delivery Unit Patient Address: [address] [place] [address] [place] [address] Phone number: [phone] Date of Referral: 02/08/2025 Time of Referral: 08:25 Referred By: Taylor Carvajal Date of Intervention: 02/09/2025 Time of Intervention: 16: 04 Reason for Referral: History of PPD, anxiety and ?s maternal grandmother addicted to meth. History obtained from: Medical records, and mother of baby (MOB). Household composition: MOB, father of baby (FOBKevin Titus, age 32), MOB?s 17 years old daughter Jessica Swenson, 13 year old son Hudson Swenson, 8 year old son Shen Sparks, 6 year old son Aleyda Sparks, ?and MOB and FOB?s 3 year old son Rolly, 2 year old son Roberto and daughter Harrison, born on 02/08/2025. Patient's parent/guardian status: MOB and FOB have been together for 5 years and have been for 3 of those 5 years. MOB and FOB will both be actively involved in providing care for and MOB described a positive relationship with herself and the FOB and denied any DV. Medical History:? MOB received routine care through [facility] beginning at 9 weeks and 4 days. Apgars: 8 and 9. Weight: 6 pounds, 12 ounces. Juvenile Correctional Officer: Dr. Rosalino Fine. Educational Status: MOB denied any issues with reading or writing with either herself or the FOB. MOB and FOB both attended some college. Financial Status: MOB reported the household income is sufficient to meet the needs of their family at this time. MOB is currently a [id number] mom (SAHM) and the FOB is employed full-time but described to have a very flexible schedule. Supplies: MOB reported she has all the supplies she needs for baby at this time including but not limited to: Car seat, bassinet, pack-n-play, crib, diapers, bottles, breast pump and clothing. Childcare/Caregiver(s):? MOB identified herself as the primary caregiver for as a SAHM however reported the FOB will also help provide care during the times he is not working. Transportation:? MOB reported she and the FOB are both licensed drivers and have a reliable vehicle to take baby to and from all medical appointments. No transportation issues identified. Programs/Agencies Involved: Medicaid, WIC and previous family counseling between the MOB and her daughter Jessica through [facility] that lasted for 3 months. No current involvement.? Children Services/Legal Issues:? MOM has a history of Children Services involvement with her oldest daughter Jessica however reported no allegations have ever been substantiated.? MOB denied any current involvement. Behavioral Health Issues:?? Mental Health History: MOB has a history of Anxiety, Depression, and PPD with children 2-5 however denied any depressive symptoms since then. MOB described the PPD more as ?the baby blues? that never lasted for very long and was easily manageable. MOB ?denied any recent/current depression and stated she feels ?great?. ?Substance Use History:?? MOB denied any history of drug or alcohol abuse either with herself or the FOB.??? Family History:? MOB stated ?s maternal grandmother (MGM) is addicted to meth however is involved with the correction and court and is now 12 weeks sober. MOB reported though it was forced treatment, ?s MGM expressed a desire to remain sober so that she can be a part of her grandchildren?s lives. MOB also stated her maternal uncle has bipolar and MOB?s maternal grandmother has a history of anxiety. MOB denied any history of drug or alcohol abuse or mental health of the FOB?s side of the family. ??Drug Screens:? None obtained at the time of this admission.? Family/Social Stressors: ?MOB denied any current family or social stressors. Support Systems: Ample.? MOB identified her biggest support as the FOB as well as ?s paternal grandmother who lives in [place]. Depression/Shaken Baby/Safe Sleeping: biofuels plant construction worker provided verbal and written education on PPD, Safe Sleeping and Shaken Baby. biofuels plant construction worker reviewed risk factors that can increase risk of PPD which MOB verbalized she understood. ? ASSESSMENT: Late note entry.? MOB provided consent to social work visit. MOB was alone at the time of the visit and reported the FOB wouldn?t be back until later in the afternoon/close to evening. was swaddled and sleeping in the crib during the visit and MOB sat close-by in a chair.? MOB was verbally engaged, cooperative and was in good spirits. MOB kept talking about how excited she was for . ?MOB reported feeling safe in her home, denied any previous or current domestic violence, drug or alcohol abuse or unmanaged mental health issues with either herself of the FOB. Safe Plan of Care for related to substance use: N/A; not needed.? PLAN:? Baby to be discharged home when ready.? biofuels plant construction worker also provided written information on depression, depression resources, [place] resources on car seat checks and visits as well as Help Me Grow as additional resources offered by director of social media marketing which MOB accepted. No other services requested or indicated. Taylor Olsen, TELEPHONE SURVEYOR, ALL SOURCE COLLECTION MANAGER
[2025-02-10 01:19] VITALS: BP 105/56; PULSE 60; RESP 16; TEMP 36.3; O2SAT 97
[2025-02-10] MEDS: Ibuprofen 600 MG Tablet PO (05:20)
--- NOTE | 2025-02-10 07:55 | PCM.PN.OB ---
Subjective Subjective Doing well. Ambulating and voiding without difficulty. Mild lochia. Breast feeding. Objective Data Objective Data Vital Signs: Vital Signs Temp Pulse Resp BP Pulse Ox O2 Del Method 97.4 F L 60 16 105/56 L 97 Room Air 02/10/25 01:19 02/10/25 01:19 02/10/25 01:19 02/10/25 01:19 02/10/25 01:19 02/10/25 01:19 Oxygen Delivery Method Room Air Weight: 95.254 kg Body Mass Index (BMI) 32.8 Intake & Output: Intake and Output for Last 24 Hours 02/08/25 02/09/25 02/10/25 23:59 23:59 23:59 Intake Total 3953.10 / 3953.10 250 / 250 Output Total 1250 / 1250 700 / 700 Balance 2703.10 / 2703.10 -450 / -450 Lab / Micro Data 02/08/25 08:00 ROS Constitutional Constitutional: Denies headache(s) Cardiovascular Cardiovascular: Denies chest pain or dyspnea Gastrointestinal Gastrointestinal: Denies nausea or vomiting Genitourinary Genitourinary: Denies dysuria Physical Exam Const alert, oriented x3 and no apparent distress General Appearance: cooperative and comfortable Eyes PERRL and EOMs intact bilaterally Resp normal respiratory effort GI soft to palpation and non-tender Uterus Palpation: uterus fundus firm ( below umbilicus) Extremity normal to inspection and full ROM Neuro oriented x3 and CN's II-XII intact bilaterally Psych mental status grossly normal Assessment & Plan (1) (spontaneous vaginal delivery): (2) Cholestasis during : QUALIFIERS: Trimester: third trimester Qualified Code(s): O26.643 - Intrahepatic cholestasis of , third trimester (3) Grand multiparity in labor and delivery: (4) Care and examination of lactating mother: PLAN: Plan Discharge home
--- NOTE | 2025-02-10 08:37 | PCM.DC.SUM ---
Providers Date of Admission: 02/08/25 Date of Discharge: 02/10/25 Primary Care Physician: Sandrita Mo Reason For Visit: VAGINAL DELIVERY Diagnosis Discharge Diagnosis (1) (spontaneous vaginal delivery): Status: Acute Code(s): O80 - Encounter for full-term uncomplicated delivery (2) Cholestasis during : Status: Acute Code(s): O26.619 - Liver and biliary tract disorders in , unspecified trimester; K83.1 - Obstruction of bile duct Qualifiers: Trimester: third trimester Qualified Code(s): O26.643 - Intrahepatic cholestasis of , third trimester (3) Grand multiparity in labor and delivery: Status: Acute Code(s): O80 - Encounter for full-term uncomplicated delivery (4) Care and examination of lactating mother: Status: Acute Code(s): Z39.1 - Encounter for care and examination of lactating mother Plan Discharge home Medications at Discharge Home Medications acetaminophen 500 mg tablet 1,000 mg (2 x 500 mg) PO Q6H PRN PRN Pain 1-10 Or Fever #0 tabs 04/06/23 Hospital Course Operations None Procedures None Summary of Care Provided Minutes Spent on Discharge: 20 Hospital Course: uncomplicated Physical Exam Const alert and no apparent distress Narrative: Fundus firm, below umbilicus. Weight / BMI Weight Weight: 95.254 kg Body Mass Index (BMI) 32.8 ABG / Lab / Microbiology Data 02/08/25 08:00 D/C Instructions May resume sexual activity in: 6 weeks DC O2, CPAP, BIPAP Needs Home O2 Discharge instructions: No Please Follow Up With: Yvonne Nagy MD When: Follow up with our office in 1-2 and 6 weeks or as needed. [phone] Meaningful Use Info Meaningful Use Meaningful Use Diagnoses (Choose all that apply): None applicable Ischemic Stroke Statin Dosing Therapy Reference: STATIN DOSE THERAPY REFERENCE: * Patients > 75 years receive moderate or high dose statin therapy. * Patients 75 years or YOUNGER should receive HIGH intensity statin dose unless contraindicated. You will be required to document reason for non-treatment if statin daily dose does not meet guidelines. HIGH DOSE STATIN THERAPY DAILY Atorvastatin > than or = to 40 mg Rosuvastatin > than or = to 20 mg Amlodipine + Atorvastatin > than or = to 2.5/40 mg Ezetimibe + Simvastatin 10/80 mg Simvastatin 80mg Discharge Plan Admission Admit Date/Time: 02/08/25 07:19 Primary Reason for Your Visit: induction of labor Attending Provider: Taylor Carvajal Primary Care Provider: Sandrita Mo Discharge Orders/Prescriptions Prescriptions: Continued acetaminophen 500 mg Tablet 1,000 mg PO Q6H PRN PRN (Reason: Pain 1-10 Or Fever) Qty: 0 0RF Referrals / Follow Up: Sandrita Mo [Other] Disposition Disposition (needs filled in before D/C Order can be placed): Home, Self Care
[2025-02-10 08:59] VITALS: BP 106/62; PULSE 73; RESP 16; TEMP 36.1; O2SAT 97
== END 2025-02-10 11:15 | disposition home or self-care (01) | DRG 560 ==
PROVIDERS: Admitting Provider Obstetrics & Gynecology; Referring Provider Obstetrics & Gynecology; Visit Provider Obstetrics & Gynecology
DX: O26.62 Liver and biliary tract disorders in childbirth (principal); Z37.0 Single live birth; K83.1 Obstruction of bile duct; O99.62 Diseases of the digestive system complicating childbirth; Z3A.37 37 weeks gestation of pregnancy; Z86.59 Personal history of other mental and behavioral disorders; Z88.0 Allergy status to penicillin
CPT/HCPCS: 59025; 59050; 85025; 86780; 86850; 86900; 86901; 99221; G0378